=== PATIENT | female | born 1965 | race Caucasian/White ===

== ENCOUNTER 2024-08-08 15:10 | Outpatient (REF) | payer OTHER, SELFPAY ==
[2024-08-09 11:31] LABS: Influenza A PCR NEGATIVE (Negative); Influenza B PCR NEGATIVE (Negative); Resp Syncy Virus RNA Qual PCR NEGATIVE (Negative); SARS COV2 PCR INHOUSE NEGATIVE (Negative)
== END 2024-08-08 15:11 | disposition home or self-care (01) ==
LOC: HO.LAB 15:10
PROVIDERS: PCP Physician Assistant; Visit Provider Physician Assistant
DX: J18.9 Pneumonia, unspecified organism (principal); R09.89 Other specified symptoms and signs involving the circulatory and respiratory systems
CPT/HCPCS: 0241U

== ENCOUNTER → 2024-08-08 15:10 | Outpatient (AMB) | payer OTHER, SELFPAY ==
--- NOTE | 2024-08-08 15:15 | AM.OFFWIN_ITS ---
Intake Vital Signs 08/08/24 15:16 Height 5 ft 6 in Weight 135 lb BMI 21.8 BP 104/70 Blood Pressure Location Lt brachial Position Sitting Pulse 84 Pulse Source Pulse Oximeter Temp 98.1 F Temp Source Oral Pulse Oximetry (%) 99 Oxygen Delivery Method Room Air Intake Visit Reasons: [employer] cough, congestion, headache Intake Note: Patient here for slight cough, chest congestion, headache and nasal congestion that started 2 days ago. Patient Tobacco Use Status: Never used Tobacco Allergies No Known Allergies Allergy (Verified 08/08/24 15:18) Do you need a note to return to daycare/school/sports/work: No HPI HPI Comments History of Present Illness Details History - The patient is a 58-year-old female pr esenting with respiratory symptoms [id number] infection. - During a familial COVID-19 spread over [place], the patient initially experienced headaches and loss of appetite. - More recently, the patient reported a cough that was non-productive, along with chest heaviness and shortness of breath. - The patient's elderly mother similarly tested positive for COVID-19 and developed pneumonia. - Head congestion persists; however, the patient did not have a fever or sinus pain. Physical Exam General: Cooperative, healthy appearing, comfortable and no acute distress Orientation/consciousness: Patient oriented x3 Limitations: No limitations Head: Normal to inspection Ears: Hearing grossly normal bilaterally, external ears normal and TM's normal bilaterally Nose: Normal external nose present, Normal nares present and No nasal discharge present Face and sinus: Normal facial exam and Yes sinuses nontender Mouth: Normal oral and palatal mucosa present and moist mucous membranes Throat: Yes tonsils normal, Yes uvula midline. Posterior oropharynx erythema Eyes: Appearance normal, both eyes and all related structures Neck: Normal visual inspection Respiratory: Clear to auscultation bilaterally. Normal respiratory effort, able to speak in complete sentences, Actively coughing, no respiratory distress, not tachypneic, no tripod positioning and no use of accessory muscles Cardiovascular: Regular rate and rhythm. Normal S1 and S2 Skin: No rashes or lesions noted Neuro: Patient oriented x3 Extremities: Normal to inspection and Yes no clubbing, cyanosis or edema PFSH Social History Patient Tobacco Use Status: Never used Tobacco Review of Systems Const All systems reviewed & are unremarkable except as noted in HPI and below Physical Exam Vital Signs: Last Vital Signs Temp 98.1 F 08/08/24 15:16 Pulse 84 08/08/24 15:16 BP 104/70 08/08/24 15:16 Pulse Ox 99 08/08/24 15:16 Oxygen Delivery Method Room Air 08/08/24 15:16 BMI result Body Mass Index 21.8 Assessment & Plan Assessment & Plan (1) Atypical pneumonia: Code(s): J18.9 - Pneumonia, unspecified organism Plan: The treatment approach involves addressing the patient's respiratory symptoms in the context of a recent COVID-19 infection. Respiratory swabs are performed to investigate the presence of influenza, RSV, or COVID-19 though she tested positive in late June so a positive would be from this exposure. Considering the possible presence of walking pneumonia in the community, initiating azithromycin may provide benefits related to its anti-bacterial and anti-inflammatory effects. The patient is instructed to await swab results prior to administration unless symptomatic progression occurs. Additionally, supportive measures for symptom relief, particularly head congestion, are recommended pending further evaluative results. No indication for CXR as lungs clear and O2 sat normal. Patient was informed and verbally consented to the use of an ambient scribe for clinic note documentation during this visit Orders: Orders SARS-CoV2/FLU/RSV Today R09.89 - Other specified symptoms and signs involving the circulatory and respiratory systems Medications: New azithromycin For 250 mg dose pack: take 500 mg today (day 1), then 250 mg for 4 days (days 2-5) PO 6 tabs 0RF Coding Level of Care Code New Pt Level 3 (62954) Diagnoses Atypical pneumonia J18.9
[2024-08-08 15:16] VITALS: BP 104/70; PULSE 84; TEMP 36.7; O2SAT 99; BMI 21.8
== END ==
PROVIDERS: Visit Provider Physician Assistant
DX: J18.9 Pneumonia, unspecified organism (principal)